=== PATIENT | female | born 1995 | race Caucasian/White ===

== ENCOUNTER 2022-05-28 11:51 | Emergency (ER) | payer OTHER, SELFPAY ==
[2022-05-28 12:06] VITALS: BP 120/78; PULSE 72; RESP 14; TEMP 36.3; O2SAT 98
--- NOTE | 2022-05-28 12:08 | DI.RAD.S_ITS ---
PROCEDURE: XR SOFT TISSUE NECK INDICATIONS: possible fish bone caught in throat. TECHNIQUE: 2 views of the neck were acquired. COMPARISON: None. FINDINGS: Airway: The airway appears patent. Soft tissues: Prevertebral soft tissues are normal in thickness. The epiglottis and aryepiglottic folds appear normal. No soft tissue gas. Bones: No suspicious bony lesions. Visualized cervical spine is normally aligned. IMPRESSION: Negative soft tissue neck. No evidence for radiopaque soft tissue foreign body. No radiographic evidence for airway compromise. Dictated by: Andrew Trivedi M.D. on 05/28/2022 at 13:53 Approved by: Andrew Trivedi M.D. on 05/28/2022 at 13:54
[2022-05-28 14:25] VITALS: PULSE 65; RESP 18; O2SAT 100
--- NOTE | 2022-05-28 16:07 | ED.SKABFB ---
HPI - Skin/Abscess/Foreign Bdy <Sharon Flores PA-C - Last Filed: 05/28/22 16:41> General Chief complaint: Skin/Abscess/Foreign Body Stated complaint: Thinks robelbone is stuck in throat Time Seen by Provider: 05/28/22 14:28 Source: patient Mode of arrival: Ambulatory Limitations: no limitations History of Present Illness HPI narrative: 26-year-old female presents with concern for possible salmon bone stock in her throat on the left side. Patient states that she was eating smokes am in yesterday and afterwards she felt a sensation like there is something stuck in her throat on the left. She states that it is only uncomfortable when she drinks water or eats she can swallow without any issue. She does not have pain with swallowing unless she swallowing something. She states she had similar sensation last month when she had a piece of carrot stuck on the left side of her throat that eventually went down after a few weeks. At some point yesterday evening she felt it ?moved down?. And felt it more upon in the middle of her chest. She feels it in both places now and it is a mild but annoying sharp sensation only present in her chest and throat with drinking or eating. She has already been referred to ENT in [place] where she lives but has not yet seen them. At the time she was eating small examine she did not have any coughing or choking or vomiting. She said she did vomit once yesterday afternoon when she was attempting to get it out. She denies any fevers, chills, sensation of swelling in her throat or any other symptoms. Related Data Allergies Allergy/AdvReac Type Severity Reaction Status Date / Time amoxicillin Allergy Verified 05/28/22 12:06 Review of Systems <Sharon Flores PA-C - Last Filed: 05/28/22 16:41> Review of Systems Narrative: Unremarkable except as noted in the HPI Patient History <Sharon Flores PA-C - Last Filed: 05/28/22 16:41> Social History Smoking Status: Unknown if ever smoked Smoking Status: Unknown if ever smoked alcohol intake frequency: holidays/special occasions only Substance Use Type: does not use Exam <Sharon Flores PA-C - Last Filed: 05/28/22 16:41> Narrative Exam Narrative: GENERAL: 26 year old patient appears stated age. Well-developed patient, in mild distress. HEAD: Atraumatic. Normocephalic. EYES: Pupils equal round and reactive. Extraocular motions intact. No scleral icterus. No injection or drainage. ENT: Nose without bleeding, purulent drainage. Throat without erythema, tonsillar hypertrophy or exudate. Airway patent. There is no erythema, laceration, abrasion, swelling, lesion or other abnormality noted on exam of the posterior oropharynx. Pt has a normal swallo, pain free. No thyroid tenderness or enlargement noted. NECK: Trachea midline. Non tender. No lymphadenopathy or swelling. CARDIOVASCULAR: Regular rate and rhythm without murmurs, gallops, or rubs. RESPIRATORY: Clear to auscultation. Breath sounds equal bilaterally. No wheezes, rales, or rhonchi. GASTROINTESTINAL: Abdomen nondistended. EXTREMITIES: No edema or joint tenderness. NEURO: AOx3. SKIN: No rash or erythema of visible areas Initial Vital Signs Initial Vital Signs: Vital Signs Temperature 97.4 F L 05/28/22 12:06 Pulse Rate 72 05/28/22 12:06 Respiratory Rate 14 05/28/22 12:06 Blood Pressure 120/78 05/28/22 12:06 Pulse Oximetry 98 05/28/22 12:06 Oxygen Delivery Method 05/28/22 12:06 <Laly Villafuerte DO - Last Filed: 06/01/22 13:42> Initial Vital Signs Initial Vital Signs: Vital Signs Temperature 97.4 F L 05/28/22 12:06 Pulse Rate 72 05/28/22 12:06 Respiratory Rate 14 05/28/22 12:06 Blood Pressure 120/78 05/28/22 12:06 Pulse Oximetry 98 05/28/22 12:06 Oxygen Delivery Method 05/28/22 12:06 Course <Sharon Flores PA-C - Last Filed: 05/28/22 16:41> Orders Ordered: ED Orders 05/28/22 12:08 XR soft tissue neck Stat Consultations Consultation #1: Spoke with Dr. Quinn about potential additional imaging or exams today, he feels it is reasonable for her to follow-up with ENT when she gets back to [place] in a few days. He does not feel that CT would be super helpful he does feel that the best study for her may be a swallow study for further eval, but not needed at this point on an emergent basis. Time: 16:25 Vital Signs Vital signs: Vital Signs - 8 hr 05/28/22 12:06 05/28/22 14:25 05/28/22 16:20 Temperature 97.4 F L Pulse Rate 72 65 70 Respiratory Rate 14 18 16 Blood Pressure 120/78 126/87 Pulse Oximetry 98 100 100 Oxygen Delivery Method Room Air Room Air Room Air <Laly Villafuerte DO - Last Filed: 06/01/22 13:42> Orders Ordered: ED Orders 05/28/22 12:08 XR soft tissue neck Stat Vital Signs Vital signs: Vital Signs - 8 hr 05/28/22 12:06 05/28/22 14:25 05/28/22 16:20 Temperature 97.4 F L Pulse Rate 72 65 70 Respiratory Rate 14 18 16 Blood Pressure 120/78 126/87 Pulse Oximetry 98 100 100 Oxygen Delivery Method Room Air Room Air Room Air MDM - Skin/Abscess/Foreign Bdy <Sharon Flores PA-C - Last Filed: 05/28/22 16:41> Medical Records Medical records narrative: 26-year-old female presents with concern for possible salmon bone stuck on the left side of her throat. Exam is unremarkable. Soft tissue x-ray is also unremarkable. Discussed with the patient potential treatment options including glucagon, which I feel is unlikely to be helpful given her particular situation. As well as viscous lidocaine for numbing. Patient ultimately declines these and will follow up with ENT, monitor for signs of infection or worsening symptoms, or airway compromise. Did also speak with Dr. Quinn, on-call surgeon today regarding the patient's case. He does not feel is soft tissue CT neck is indicated today and thinks it is reasonable for her to follow-up with ENT as an outpatient. Imaging Data XR soft tissue neck: My Impression: I have reviewed the x-ray and agree with radiologist's interpretation. Also reviewed this x-ray with Dr. Villafuerte, attending physician. Radiologist's Impression: [address] [address] XRay Report Signed Patient: Ani Macdonald MR#: [id number] : 1995 Acct:[id number] Age/Sex: 26 / F Date of Service: 05/28/22 Loc: ED Accession Number: [id number] ?? Procedure: XR soft tissue neck Ordering Provider: Laly Villafuerte D.O. PROCEDURE:? XR SOFT TISSUE NECK ? INDICATIONS:? possible fish bone caught in throat. ? TECHNIQUE:? 2 views of the neck were acquired.? ? COMPARISON:? None. ? FINDINGS:? ? Airway:? The airway appears patent.? ? Soft tissues:? Prevertebral soft tissues are normal in thickness.? The epiglottis and aryepiglottic folds appear normal.? No soft tissue gas.? ? Bones:? No suspicious bony lesions.? Visualized cervical spine is normally aligned.? ? IMPRESSION:? Negative soft tissue neck.? No evidence for radiopaque soft tissue foreign body.? No radiographic evidence for airway compromise. ? ? Dictated by: Andrew Trivedi M.D. on 05/28/2022 at 13:53 ? ? Approved by: Andrew Trivedi M.D. on 05/28/2022 at 13:54?? Discharge Plan Departure Patient Disposition: Home Clinical Impression: Foreign body sensation in throat, Throat pain in adult Activity Restrictions/Additional Instructions: Thank you for letting us be part of your care in the emergency department today. The x-ray of your neck looks good, your exam also looked good today. We did speak with our on-call surgeon who feels that is reasonable for you to follow-up with your ENT doctor as previously referred in [place] in a few days time. It is possible that your throat was scratched and you are still having some associated irritation. Of course if your symptoms do worsen or change do not hesitate to get re-evaluated sooner. You may potentially benefit from a swallow study for further evaluation since you have had similar episodes in the past. As we discussed please monitor for signs of infection such as drainage, swelling, increasing pain, fevers, chills, bad smell or any other new or concerning symptoms related to this. Otherwise just be cautious with eating and make sure your chewing well over the next few days to weeks as long as you have symptoms and until you are seen for follow-up. You can always take Tylenol and ibuprofen if the discomfort is bothering you, however it is also good to pay attention to her symptoms and if they are changing. Visit Report Forms: Patient Portal/API <Laly Villafuerte DO - Last Filed: 06/01/22 13:42> Cosign ED Attending Coskurtature Attestation: I was immediately available in the department for consultation. Documentation has been reviewed. I agree with assessment and plan.
[2022-05-28 16:20] VITALS: BP 126/87; PULSE 70; RESP 16; O2SAT 100
== END 2022-05-28 16:48 | disposition home or self-care (01) ==
PROVIDERS: Emergency Provider Student in an Organized Health Care Education/Training Program
DX: R07.0 Pain in throat (principal); R09.89 Other specified symptoms and signs involving the circulatory and respiratory systems
CPT/HCPCS: 70360; 99281; 99283